=== PATIENT | female | born 1945 | race Caucasian/White ===

== ENCOUNTER 2024-07-01 04:54 | Inpatient (IN) | payer OTHER, SELFPAY ==
[2024-06-30 22:56] VITALS: BP 230/60
[2024-06-30 23:41] VITALS: BP 207/42
[2024-06-30 23:44] VITALS: BMI 23.1
[2024-06-30 23:54] VITALS: BP 219/54
--- NOTE | 2024-06-30 23:56 | EDRN ---
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 Pt c/o headache and occasional ' heart thumping and
dropping sensation', 2 weeks ago had an episode of dizziness and now reports her L hand is more weak and 'not working as well'
[2024-07-01] VITALS (23 sets, daily range): BP systolic 138–223; BP diastolic 46–78; PULSE 68–99
[2024-07-01 00:08] LABS: % Basophils 1.1 % (0-2); % Eosinophils 3.1 % (0-6); % Immature Granulocytes 0.5 % (0-0.5); % Lymphocytes 33.1 % (20.5-51.1); % Monocytes 9.3 % (1.7-9.3); % Neutrophils 52.9 % (42.2-75.2); Absolute Basophils 0.1 10^3/uL (0-0.2); Absolute Eosinophils 0.2 10^3/uL (0-0.7); Absolute Lymphocytes 2.1 10^3/uL (1.2-3.4); Absolute Monocytes 0.6 10^3/uL (0.1-0.6); Absolute Neutrophils 3.3 10^3/uL (1.4-6.5); Hematocrit 33.6 % (37.0-47.0); Hemoglobin 11.6 g/dL (12.0-16.0); Mean Corp Hgb Conc. 34.5 g/dL (33.0-37.0); Mean Corpuscular Hgb 30.7 pg (27.0-31.0); Mean Corpuscular Volume 88.9 fL (81.0-99.0); Mean Platelet Volume 9.1 fL (7.4-10.4); Nucleated Red Blood Cells % 0 %; Platelet Count 237 10^3/uL (130-400); Red Blood Cell Count 3.78 10^6/uL (4.20-5.40); Red Cell Dist. Width 13.1 % (11.5-14.5); White Blood Cell Count 6.2 10^3/uL (4.8-10.8)
[2024-07-01 00:27] LABS: ALT (SGPT) 12 U/L (0-35); AST (SGOT) 23 U/L (14-36); Albumin 4.3 g/dl (3.5-5.0); Alkaline Phosphatase 71 U/L (38-126); Blood Urea Nitrogen 28 mg/dl (7-17); Calcium 9.4 mg/dl (8.4-10.2); Carbon Dioxide 22 mmol/L (22-30); Chloride 106 mmol/L (98-107); Estimated Creatinine Clearance 34 ml/min; Glucose 102 mg/dl (70-99); Potassium 4.4 mmol/L (3.5-5.1); Sodium 137 mmol/L (135-145); Total Bilirubin 0.3 mg/dl (0.2-1.3); Total Protein 7.3 g/dl (6.3-8.2); eGFR 42.09
[2024-07-01 00:35] LABS: NT-proBNP 1570 pg/ml; Troponin I 0.049 ng/ml
[2024-07-01] MEDS: TRANDATE 10 MG IV (01:01)
--- NOTE | 2024-07-01 01:03 | ED.GENMED ---
History of Present Illness
General
Chief Complaint: Blood Pressure Problem
Time Seen by Provider: 07/01/24 00:52
History of Present Illness
History of Present Illness:
78-year-old female presents to the emergency department for evaluation of headache, blurry vision, and bilateral leg weakness ongoing for the past several weeks but worsening in the past several days. She admits that she had historically been on
several antihypertensives that she electively discontinued at least 6 months ago. She checks her blood pressure twice daily and has been consistently in the 1 90-200 range for the past 3 to 4 weeks. encouraged her to come to the emergency
department today. She denies chest pain or shortness of breath.
Review of Systems
Review of Systems
Allergies reviewed?: Yes
All Other Systems: ROS reviewed and negative except as documented in HPI and ROS
Phy Exam
Physical Exam
Physical Exam:
GEN: Well appearing, NAD, WDWN
Eyes: minimally reactive left pupil, baseline per patient, EOMs intact
HENT: NCAT, oral mucosa moist, no JVD, no cervical adenopathy.
Lungs: CTAB, no wheezes, rales, rhonchi, normal chest wall excursion
Cardiac: RRR, no M/R/G, no peripheral edema. Radial pulses 2+ bilat
Abdomen: S, NT, ND, NABS, no masses or hepatosplenomegaly
Neuro: AO x 3, no focal deficits to BUE/BLE, normal sensation throughout
MSK: No gross deformity or ecchymosis. No edema. No digital clubbing
Skin: No rashes, petechiae. Normal color, no pallor or jaundice.
Psych: Calm, cooperative, proper hygiene
Course
Orders/Labs/Results
Orders:
Orders
06/30/24 23:09
Electrocardiogram (*1) Urgent
Reason for Study: Other
Other Reason for Exam: Respiratory Distress
Cardiac Monitoring- Treatment ONCE
EKG- Treatment ONCE
IV Insert/Care/Rem.- Treatment PRN
O2 Therapy [RESP] Urgent
Titrate/Wean O2 to maintain O2 sat greater than (%): 93
Special Instructions: TO MAINTAIN CONTINUOUS O2 SATS >/= 93%
Pulse Ox/cont/shift [RESP] Urgent
Quantity: 1
Special Instructions: continuous pulse ox
06/30/24 23:58
Complete Blood Count/With Diff Urgent
Comprehensive Metabolic Panel Urgent
NT-proBNP Urgent
Troponin I Urgent
07/01/24 00:02
CR Chest - 2 Views Urgent
Reason For Exam: respiratory distress
07/01/24 00:53
Labetalol HCl [Trandate] 10 mg IV NOW STA
07/01/24 00:54
CT Head W/o Iv Contrast Urgent
Comment:
Reason For Exam: headache, blurry vision, HTN
07/01/24 01:29
HydrALAZINE [Apresoline] 10 mg IV NOW STA
07/01/24 02:49
Troponin I Urgent
Abnormal Lab Results
06/30/24 07/01/24
23:58 02:49
RBC 3.78 L 10^6/uL
(4.20-5.40)
Hgb 11.6 L g/dL
(12.0-16.0)
Hct 33.6 L %
(37.0-47.0)
BUN 28 H mg/dl
(7-17)
Creatinine 1.3 H mg/dL
(0.6-1.0)
Glucose 102 H mg/dl
(70-99)
Troponin I 0.049 H* ng/ml 0.048 H* ng/ml
06/30/24 23:58
06/30/24 23:58
Vital Signs
Initial and Last Documented VS:
Initial Vital Signs
Temp Pulse Resp BP Pulse Ox
98.1 F 77 20 230/60 96
06/30/24 22:56 06/30/24 22:56 06/30/24 22:56 06/30/24 22:56 06/30/24 22:56
Last Documented Vital Signs
Temp Pulse Resp BP Pulse Ox
98.1 F 73 20 159/67 96
06/30/24 22:56 07/01/24 03:32 07/01/24 03:32 07/01/24 03:32 07/01/24 03:32
MDM/Problems Addressed
MDM/Problems Addressed:
Patient with hypertensive urgency due to medication noncompliance. She was previously on numerous antihypertensives thus I feel it is reasonable to admit her for further management of her blood pressure crisis
*Critical Care Note
Total Time (30-74mins, 75-104mins- exclusive of procedures): Not Applicable
ED Attending Note
-
Portions of this chart may have been created with voice recognition software.� Occasional wrong word or��sound alike� substitutions may have occurred due to the inherent limitations of voice recognition software.
Discharge Plan
Departure
Patient Disposition: Admit
Date of Disposition: 07/01/24
Time of Disposition: 03:20
Admit to: Med/Surg
Presentation/result/management discussed w/ accepting MD/DO: Hospitalist
Discharge Problem:
Hypertensive urgency
Interventions
Interventions:
*Risk Screen - Suicide Last Done: 06/30/24 22:56
*General Assessment Last Done: 06/30/24 22:56
*Neglect/Abuse Screening Last Done: 06/30/24 22:56
ED- Fall Risk Assessment Last Done: 06/30/24 22:56
*ED COVID-19 Vaccine History Last Done: 06/30/24 22:56
ED- Cardiac Assessment Last Done: 06/30/24 23:55
ED- Neurological Assessment Last Done: 06/30/24 23:55
ED- Pulmonary Assessment Last Done: 06/30/24 23:55
Discharge Date and Time
Print Language: TANZANIAN
[2024-07-01] MEDS: APRESOLINE 10 MG IV (01:31)
[2024-07-01 03:38] LABS: Troponin I 0.048 ng/ml
--- NOTE | 2024-07-01 05:24 | HPS.HSE ---
Family Physician
-
Family Physician: Suzanne Vasquez MD
Chief Complaint
-
Elevated Blood Pressure
History of Present Illness
Patient is a 78y F with PMH significant for hypertension and lichen sclerosis who presents to ED complaining of elevated BP, dizziness and 'pain all over'. History is somewhat difficulty to interpret with patient oscillating between chronic
issues, acute issues and remote issues.
Patient states that she stopped all of her medications 6 months ago. She felt that they were all aggravating her lichen sclerosis, causing itching and dry eyes. She notes that her BP at home has been fairly consistently 200-230 systolic since that
time. Today she checked her BP and it was 210/90. She notes that her diastolic pressure is usually normal and the 90 concerned her - prompting her to present to the ED for further evaluation.
Patient complains of sense of dizziness and feeling unsteady on her feet. She indicates that this is an intermittent issue for her. No focal / lateral weakness or neurologic deficits.
She denies any headache. She has chronic visual impairment s/p/ many eye surgeries / corneal transplants / etc.
She denies chest pain but reports 'pounding' in her chest. No SOB.
Medical History
Past Medical History
Past Medical History: Reports Other
Additional Past Medical History:
Hypertension
Lichen Sclerosis
Anxiety / Depression
Chronic Pancreatitis
Diverticular Disease
Spinal Stenosis
Past Surgical History: Reports Other
Additional Past Surgical History:
Partial Colectomy
28 eye surgeries in total
14 corneal transplants
Lumbar Laminectomy
Cholecystectomy
Social History
Tobacco: Smoker (Current every day smoker. > 50 pack years total use.)
Alcohol: None
Personal:
Living: With Family
Family History
Family History: Not pertinent
Allergies / Home Medications
Allergies reflects when Allergies were last updated in [facility].
Home Medications with original date entered in [facility]
Allergy/Medication List:
Allergies
Allergy/AdvReac Type Severity Reaction Status Date / Time
No Allergy Information Allergy Unverified 06/30/24 23:09
Available
Home Medications
alprazolam 0.5 mg tablet 0.5 mg PO BID PRN anxiety 07/01/24
Review of Systems
-
History Source: Patient
A 12 point ROS was completed and negative except as noted: Yes
Constitutional: Reports Fatigue; Denies Fever or Chills
EENT: Denies Sore Throat
Respiratory: Denies Cough or Trouble Breathing
Cardiac: Denies Chest Pain, Diaphoresis, Palpitations or Syncope
Abdomen/GI: Denies Abdominal Pain, Nausea, Vomiting, Diarrhea, Bloody Stools or Black Stools
: Denies Dysuria, Frequency or Flank Pain
Musculoskeletal: Reports Joint Pain and Muscle Pain; Denies Edema
Neurological: Reports Dizzy and Weakness; Denies Headache or Numbness
Psych: Denies Depression or Anxiety
Physical Exam
Vital Signs
Vital Signs
Temp Pulse Resp BP Pulse Ox
97.9 F 94 20 175/62 95
07/01/24 04:49 07/01/24 05:00 07/01/24 05:00 07/01/24 04:49 07/01/24 05:00
Physical Exam
General: Other (78y F in no acute distress.)
HEENT: Moist mucous membranes and PERRLA
Respiratory: Clear; No Wheezes, Rales or Rhonchi
Cardiac: S1/S2 and Regular Rhythm; No Murmur
GI: Soft, Non Tender, Non Distended and Normal Bowel Sounds
Musculoskeletal: No Clubbing, No Cyanosis and No Edema
Neuro: AO x 3 and Nonfocal/grossly intact
Laboratory Results
-
06/30/24 23:58
06/30/24 23:58
Laboratory Results
Total Bilirubin 0.3 mg/dl (0.2-1.3) 06/30/24 23:58
AST 23 U/L (14-36) 06/30/24 23:58
ALT 12 U/L (0-35) 06/30/24 23:58
Alkaline Phosphatase 71 U/L (38-126) 06/30/24 23:58
Troponin I 0.048 ng/ml H* 07/01/24 02:49
Impression/Plan
-
A/P: Patient is a 78y F with PMH significant for hypertension and lichen sclerosis who presents to ED for evaluation of elevated BP.
Severe Uncontrolled Hypertension
- Admit for further evaluation and treatment.
- Mild elevation in troponin - already trending down - without chest pain or EKG changes.
- Difficulty to categorize this as hypertensive emergency given chronicity of BP elevation.
- BP improved after IV medications in the ED.
- Begin PO amlodipine and adjust / add additional meds as needed for BP control.
- Encourage medication compliance.
- Monitor for any new / focal symptoms / etc.
Renal Insufficiency
- SCr = 1.3 with no prior value for comparison.
- Suspect CKD due to long-standing hypertensive kidney disease.
- Follow over the next 24-48 hours to establish baseline.
Lichen Sclerosis
- Not on any chronic treatment.
- Follow for any new / worsened symptoms with introduction of new medications.
DVT Prophylaxis: SCDs
Code Status: DNR
[2024-07-01 06:12] LABS: Hematocrit 34.4 % (37.0-47.0); Hemoglobin 11.9 g/dL (12.0-16.0); Mean Corp Hgb Conc. 34.6 g/dL (33.0-37.0); Mean Corpuscular Hgb 30.6 pg (27.0-31.0); Mean Corpuscular Volume 88.4 fL (81.0-99.0); Mean Platelet Volume 9.2 fL (7.4-10.4); Platelet Count 245 10^3/uL (130-400); Red Blood Cell Count 3.89 10^6/uL (4.20-5.40); Red Cell Dist. Width 13.1 % (11.5-14.5); White Blood Cell Count 8.3 10^3/uL (4.8-10.8)
[2024-07-01 06:19] LABS: Urine Albumin Trace (Neg - Trace); Urine Bilirubin Negative (Negative); Urine Character Clear (Clear); Urine Color Yellow; Urine Glucose Negative (Negative); Urine Ketone Negative (Negative); Urine Leukocyte Trace (Negative); Urine Nitrite Negative (Negative); Urine Occult Blood Negative (Negative); Urine Urobilinogen Negative (Neg - 1+)
[2024-07-01 06:27] LABS: Blood Urea Nitrogen 25 mg/dl (7-17); Calcium 9.6 mg/dl (8.4-10.2); Carbon Dioxide 18 mmol/L (22-30); Chloride 105 mmol/L (98-107); Estimated Creatinine Clearance 40 ml/min; Glucose 120 mg/dl (70-99); HDL Cholesterol 81 mg/dl; LDL Cholesterol, Calculated 114 mg/dl; Sodium 137 mmol/L (135-145); Total Cholesterol 208 mg/dl (50-199); Triglyceride 69 mg/dl (10-149); Very Low Density Lipoprotein 13 mg/dl (0-30); eGFR 51.43
[2024-07-01 06:41] LABS: Troponin I 0.054 ng/ml
[2024-07-01 07:00] LABS: Urine Bacteria Few (Negative); Urine Squamous Cell 16-20 /LPF (Few); Urine Urothelial Cell 16-20 /LPF (FEW)
[2024-07-01 07:12] LABS: TSH Reflex To Free T4 2.11 uIU/ml (0.47-4.68)
[2024-07-01] MEDS: NORVASC 10 MG PO (08:26)
--- NOTE | 2024-07-01 08:28 | W.PN.HOSP.TC ---
Today's Communication/Plan
-
see PN
Assessment / Plan
Assessment / Plan
78yo F with PMHx of HTN, spinal stenosis, anxiety, lichen planus came with c/o palpitations and elevated BP. She stopped her meds appr 6mo ago since she thought that they were making her feel dry, exacerbating lichen planus. She does not have
records of her previous meds, since she threw that all away. 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
Among chronic complains - b/l LE pain starting from back radiating down her legs without recent change or new focal neurological deficit (previously seen by neurology as per patient)
A/P:
#Palpitations
#HTN urgency
#Elevated troponin, most likely non-ischemic myocardial injury 2/2 HTN
Patient remembers that she was on 5 antihypertensives, among them Amlodipine, HCTZ and possibly ACEi/ARB
start on Amlodipine and Lisinopril
Patient already scheduled for outpatient appt with her coning machine operator - will need BMP in 2-3 weeks
follow BP trend
Cardiology consult
Serial troponins without significant delta. Follow until peak
EKG with SR, however with palpitations - concern for occult Afib - cont telemetry
TSH WNL
#Elevated trop
most likely CKD vs HTN-induced
minimal elevation 1.1 - lisinopril not contraindicated
follow Cr with PCP
#generalized weakness
UA neg for overt infection
Chest XR without abnormality
Check COVID-19 and Influenza, however no fever and no WBC elevation
Head CT without acute findings
PT/OT
#Hx of spinal stenosis
recommend to cont following with her PCP
no new focal neuro deficit
Check gait with PT/OT
#Lichen planus
Moisturizing lotion
#Anxiety
Aprasolam
#HLD
Needs statin - defer to PCP
DVT ppx hep
Full code
I have spent at least 59min reviewing chart, test results, communication with consultants and direct patient care
Anticipated Discharge: 24 - 48 hours
Subjective/Interval History
-
Date of Service: July 01, 2024
Objective Data
-
Labs:
Laboratory Results
06/30/24 07/01/24
23:58 06:01
WBC 6.2 8.3
Hgb 11.6 L 11.9 L
Hct 33.6 L 34.4 L
Plt Count 237 245
Sodium 137 137
Potassium 4.4 4.0
Chloride 106 105
Carbon Dioxide 22 18 L
BUN 28 H 25 H
Creatinine 1.3 H 1.1 H
Glucose 102 H 120 H
Calcium 9.4 9.6
Total Bilirubin 0.3
AST 23
ALT 12
Alkaline Phosphatase 71
Vital Signs:
Vital Signs
Temp Pulse Resp BP Pulse Ox
98.3 F 94 20 175/62 95
07/01/24 08:01 07/01/24 05:00 07/01/24 05:00 07/01/24 04:49 07/01/24 05:00
Review of Systems
-
History Source: Patient
All other systems: Reviewed and negative
Constitutional: Reports Weakness
Cardiac: Reports Palpitations
Physical Exam
-
General: No Apparent Distress and Comfortable
HEENT: Normocephalic, Atraumatic and Moist Mucous Membranes
Respiratory: Clear to Auscultation
Cardiac: Irregular Rhythm; Negative Murmur
GI: Soft, Nontender and Nondistended
Genito-urinary: No Costovertebral Tender
Musculoskeletal: No Clubbing, No Cyanosis, No Edema and Other (good b/l dorsalis pedis pulse)
Skin: Warm
Neuro: Awake, Alert, Oriented, AO x 3, No Motor Deficits and No Sensory Deficits
Psych: Calm
--- NOTE | 2024-07-01 09:28 | CON.CAR ---
Addendum entered and electronically signed by Ministerio Barrera MD 07/01/24 10:58:
78 yo female with PMH of HTN, current tobacco. Stopped meds months ago on her own. Now here with HTN emergency (acute, non-ischemic myocardial injury noted) and palps. No chest pain. Exam with RRR, no murmurs, no edema. Cr 1.1. Tele: SR, with
brief SVT. EKG: NSR, nonspecific ST abnormality.
We discussed the importance of med compliance. Lisinopril and amlodipine added back. She feels thiazides worsened her lichen sclerosis.
Palps, SVT. I offered her medical therapy. She declines at this time.
Original Note:
Consultation
Consultation Request
Date/Time Consultation Requested: 07/01/2024 08:20
Date/Time Consultation Performed: 07/01/2024 08:50
Requesting Provider: Dr. Friend
Performing Provider: OLGA Ontiveros for Dr. Barrera
Reason for Consultation: Hypertensive urgency
Medical History
-
Chief Complaint: Elevated blood pressure
History of Present Illness:
Ellie Morales is a 78-year-old female with hypertension, Lichen sclerosis, anxiety, depression, neuropathy, and current smoker with suspected COPD presented to the emergency department with a chief complaint of elevated blood pressure. Approximately
6 months ago she stopped her antihypertensive agents as they were worsening her lichen sclerosus causing itching and dry eyes. Her systolic blood pressure has been over 180 mmHg for the past several weeks. She has no chest pain. She does endorse
intermittent palpitations which she describes as a midsternal anterior pounding sensation. She is on the hospital service. Cardiology was consulted for management of hypertensive urgency
She lives at home with her . She does not begin amount of stress as her is a [place] and has bipolar disorder. He recently had a manic episode.
Past Medical History
Past Medical History: HTN, Psychiatric (Anxiety/depression) and Other (Lichen sclerosis)
Past Surgical History: Bowel Resection (Partial colectomy) and Orthopedic (Lumbar laminectomy)
Social History
Tobacco: Smoker (1 PPD since the age of 30)
Alcohol: None
Drug: None
Personal:
Living: With Family
Employment: Retired
Family History
Family History: Reviewed & Not Pertinent
Allergies / Home Medications
Allergy/AdvReac Type Severity Reaction Status Date / Time
No Allergy Information Allergy Unverified 06/30/24 23:09
Available
�Medication �Instructions �Recorded �Confirmed �Type
alprazolam 0.5 mg tablet 0.5 mg PO BID PRN anxiety 07/01/24 07/01/24 History
Review of Systems
-
History Source: Patient
All other systems: Negative unless noted
Constitutional: Fatigue
EENT: No Symptoms
Respiratory: No Symptoms
Cardiac: Palpitations
Abdomen/GI: No Symptoms
: No Symptoms
Musculoskeletal: No Symptoms
Skin: No Symptoms
Neurological: Other (Neuropathy)
Endocrine: No Symptoms
Hematologic/Lymphatic: No Symptoms
Physical Exam
Vital Signs
Temp Pulse Resp BP Pulse Ox
98.3 F 94 20 175/62 95
07/01/24 08:01 07/01/24 05:00 07/01/24 05:00 07/01/24 04:49 07/01/24 05:00
Lab Results
07/01/24 06:01
07/01/24 06:01
Troponin I 0.054 ng/ml H* 07/01/24 06:01
Lhi-R-Keeozcgpegq Pept 1570 pg/ml 06/30/24 23:58
Physical Exam
General: Well Developed, Well Nourished, No Apparent Distress and Comfortable
HEENT: Normocephalic, Anicteric and Moist Mucous Membranes
Respiratory: Non Labored Respirations
Cardiac: S1/S2 and Regular Rhythm; Negative Peripheral Edema
Breast: Deferred by me
GI: Soft, Non Tender, Non Distended and Normal Bowel Sounds
Rectal: Deferred by Provider
Genito-urinary: No Costovertebral Tender
Musculoskeletal: No Clubbing and No Cyanosis
Skin: Warm and Dry
Neuro: AO x 3
Hematologic/Lymphatic: No Lymphadenopathy
Psych: Calm
Impression / Plan
-
IMPRESSION/PLAN: 78F with hypertension, Alan sclerosis, anxiety, depression, neuropathy, and current smoker with suspected COPD presented to the emergency department with a chief complaint of elevated blood pressure.
Hypertensive Emergency
-Compliance was an issue as an outpatient
-She does not want to take chlorthalidone as it worsened her Lichen sclerosis
-She was started on amlodipine 10 and lisinopril 5 mg by primary service, follow BP
-TTE Wednesday
Atrial tachycardia
-Intermittent chest pounding
-She is hesitant to already take 2 agents, unclear if she will take a third agent
Abnormal troponin, likely nonischemic myocardial injury in the setting of hypertensive emergency
-She has no chest pain
-EKG does not show acute ischemia
-Trend to peak, currently 0.054
Renal insufficiency, unclear baseline
Fasting hyperglycemia, HgbA1c pending
Lichen sclerosis, chronic
Current smoker, nearly 50 years of smoking, no plans to quit
Data Reviewed
-
EKG: Report Reviewed by me (Sinus rhythm, rate 75)
CT Scan: Report Reviewed by me (Head: No acute abnormality)
Labs: Labs Reviewed by me
[2024-07-01] MEDS: ZESTRIL 5 MG PO (11:14)
[2024-07-01 12:44] LABS: Troponin I 0.043 ng/ml
[2024-07-01 13:22] LABS: Glycohemoglobin (HgbA1c) 5.3 % (4.0-5.6)
--- NOTE | 2024-07-01 15:26 | PTCARENOTE ---
Received patient to unit from [facility]. RN updated patient on medication administration and plan of care. Pt was able to walk from stretcher to bed with walker, denies pain at the moment. She is on room air, monitor showing NSR with 70 BPM. SBP is
elevated but not high enough for prn hydralazine.
[2024-07-02] VITALS (9 sets, daily range): BP systolic 119–186; BP diastolic 39–60; PULSE 65–91; O2SAT 95
[2024-07-02] MEDS: ZESTRIL 5 MG PO (08:05)
[2024-07-02] MEDS: NORVASC 10 MG PO (08:05)
[2024-07-02 08:45] LABS: Blood Urea Nitrogen 24 mg/dl (7-17); Calcium 9.9 mg/dl (8.4-10.2); Carbon Dioxide 25 mmol/L (22-30); Chloride 100 mmol/L (98-107); Estimated Creatinine Clearance 32 ml/min; Glucose 103 mg/dl (70-99); Potassium 4.2 mmol/L (3.5-5.1); Sodium 135 mmol/L (135-145); eGFR 38.51
--- NOTE | 2024-07-02 09:23 | W.PN.HOSP.TC ---
Addendum entered and electronically signed by Michelet Martinez MD 07/02/24 14:19:
#old small lacunar strokes on MRI
most likely 2/2 poor BP control
ASA, statin as LDL>100
Original Note:
Today's Communication/Plan
-
Ortho VS
CT abd with oral contrast
start IVF
MRI brain
Echo in AM as per card
Assessment / Plan
Assessment / Plan
78yo F with PMHx of HTN, chronic pancreattitis, functional abdominal pain, Hx of cholecystectomy, spinal stenosis, anxiety, lichen planus came with c/o palpitations and elevated BP. She stopped her meds appr 6mo ago since she thought that they were
making her feel dry, exacerbating lichen planus. She does not have records of her previous meds, since she threw that all away. 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
Among chronic complains - b/l LE pain starting from back radiating down her legs without recent change or new focal neurological deficit (previously seen by neurology as per patient)
A/P:
#Palpitations
#HTN urgency
#Elevated troponin, most likely non-ischemic myocardial injury 2/2 HTN
Patient remembers that she was on 5 antihypertensives, among them Amlodipine, HCTZ and possibly ACEi/ARB
start on Amlodipine and Lisinopril
Patient already scheduled for outpatient appt with her operations and maintenance manager - will need BMP in 2-3 weeks
follow BP trend
Cardiology consult
Serial troponins without significant delta. Follow until peak
EKG with SR, however with palpitations - concern for occult Afib - cont telemetry
TSH WNL
Echo
#Functional abdominal pain
#Chronic pancreatitis
#hx of hemicolectomy 2/2 diverticulosis
Pain and nausea worsened recently
CT abd/pelvis
check lipase
#Elevated Cr
most likely CKD vs HTN-induced
follow Cr
Hydrate -might be poor oral intake with functional abdominal pain
#generalized weakness with dizziness
check orthostatic VS
MRI brain
no vertigo
UA neg for overt infection
Chest XR without abnormality
Check COVID-19 and Influenza, however no fever and no WBC elevation
Head CT without acute findings
PT/OT
#Hx of spinal stenosis
recommend to cont following with her PCP
no new focal neuro deficit
Check gait with PT/OT
#Lichen planus
Moisturizing lotion
#Anxiety
Alprazolam
#HLD
Needs statin - defer to PCP
DVT ppx hep
Full code
I have spent at least 59min reviewing chart, test results, communication with consultants and direct patient care
Anticipated Discharge: 24 - 48 hours
Subjective/Interval History
-
Date of Service: July 02, 2024
Objective Data
-
Labs:
Laboratory Results
07/02/24
08:20
Sodium 135
Potassium 4.2
Chloride 100
Carbon Dioxide 25
BUN 24 H
Creatinine 1.4 H
Glucose 103 H
Calcium 9.9
Vital Signs:
Vital Signs
Temp Pulse Resp BP Pulse Ox
97.8 F 78 18 155/58 95
07/02/24 07:00 07/02/24 07:00 07/02/24 07:00 07/02/24 07:00 07/02/24 07:00
I&O
07/01/24 07/02/24 07/03/24
06:59 06:59 06:59
Intake Total 480 / 480
Balance 480 / 480
Review of Systems
-
History Source: Patient
All other systems: Reviewed and negative
Abdomen/GI: Reports Abdominal Pain
Physical Exam
-
General: No Apparent Distress
HEENT: Normocephalic
Respiratory: Clear to Auscultation
GI: Soft, Nondistended and Tender (diffusely)
Neuro: Awake, Alert, Oriented and AO x 3
Psych: Calm
[2024-07-02 10:05] LABS: ALT (SGPT) 14 U/L (0-35); AST (SGOT) 25 U/L (14-36); Albumin 4.5 g/dl (3.5-5.0); Alkaline Phosphatase 67 U/L (38-126); Direct Bilirubin 0.2 mg/dl (0.0-0.4); Lipase 119 U/L (23-300); Total Bilirubin 0.9 mg/dl (0.2-1.3); Total Protein 7.5 g/dl (6.3-8.2)
[2024-07-02] MEDS: LR 1000 IV (10:23)
[2024-07-02] MEDS: OMNIPAQUE 50 ML PO (11:13)
--- NOTE | 2024-07-02 13:03 | W.PN.CD ---
Today's Communication / Plan
-
stop lisinopril
continue amlodipine, and add coreg 6.25mg bid
trend tele
echo
Impression / Plan
-
IMPRESSION/PLAN: 78F with hypertension, lichen sclerosis, anxiety, depression, neuropathy, and current smoker with suspected COPD presented to the emergency department with a chief complaint of elevated blood pressure.
Hypertensive Emergency
-with acute non-ischemic myocardial injury (peak trop 0.05): improved
-Compliance was an issue as an outpatient
-She does not want to take chlorthalidone as it worsened her Lichen sclerosis
-She was started on amlodipine 10 and lisinopril 5 mg by primary service
-now with Cr trending up, and patient prefers meds that do not requiring monitoring of labs: stop lisinopril
-continue amlodipine, and add coreg 6.25mg bid
Atrial tachycardia, paroxysmal
-Intermittent chest pounding
-add coreg as above
-tele
Abnormal troponin, nonischemic myocardial injury in the setting of hypertensive emergency
-She has no chest pain
-EKG does not show acute ischemia
-Trend to peak, currently 0.054
-echo in AM
Renal insufficiency, unclear baseline
Fasting hyperglycemia, HgbA1c pending
Lichen sclerosis, chronic
Current smoker, nearly 50 years of smoking, no plans to quit
Physical Exam
Vital Signs/Labs
Vital Signs
Temp Pulse Resp BP Pulse Ox
97.8 F 78 18 155/58 95
07/02/24 07:00 07/02/24 07:00 07/02/24 07:00 07/02/24 07:00 07/02/24 07:00
07/01/24 07/02/24 07/03/24
06:59 06:59 06:59
Actual Weight 66 kg
07/01/24 06:01
07/02/24 08:20
Triglycerides 69 mg/dl (10-149) 07/01/24 06:01
LDL Cholesterol, Calc 114 mg/dl 07/01/24 06:01
VLDL Cholesterol, Calc 13 mg/dl (0-30) 07/01/24 06:01
HDL Cholesterol 81 mg/dl 07/01/24 06:01
06/30/24
23:58
Rqe-D-Xamguuniqic Pept 1570
LAB Results
06/30/24 07/01/24 07/01/24
23:58 02:49 06:01
Troponin I 0.049 H* 0.048 H* 0.054 H*
07/01/24 07/01/24
11:59 17:29
Troponin I 0.043 H* Cancelled
Physical Exam
Constitutional: No acute distress and Comfortable
EENT: Moist mucous membranes
Cardiovascular: Rhythm & rate is regular, Pedal edema is absent, JVD pressure is normal and Systolic murmur absent
Respiratory: Respiratory effort normal and Lungs clear to auscul.
Neuro/Psych: AO x 3
Data Reviewed
-
Date of Service: July 02, 2024
EKG: Other (Tele: SR with paroxysmal AT)
Labs: Labs Reviewed by me
[2024-07-02] MEDS: APRESOLINE 5 MG IV (13:37)
[2024-07-02] MEDS: ZOFRAN 4 MG IV (13:44)
--- NOTE | 2024-07-02 15:49 | CM ---
CM reviewed medical records. CM met with patient in room. Patient confirmed demographics. Patient lives independently with her . Patient dneis history of VN, SNF. Patient uses a walker for ambulation. Patient is active with her PCP. Patient
uses [facility] for medication services.
PLAN: home no needs.
[2024-07-02] MEDS: LIPITOR PO (17:15)
[2024-07-02] MEDS: COREG 6.25 MG PO (19:50)
[2024-07-03 03:00] VITALS: BP 134/48
[2024-07-03] MEDS: LR 1000 IV (04:55)
--- NOTE | 2024-07-03 05:59 | PTCARENOTE ---
pt is aao3, continues to report blurry vision and having trouble seeing facebook. pt images sometimes move. pt a little forgetful. pt would forget she is at the hospital then realized by herself that she was not home. pt also refer to the iv pole as
a mailbox or plane. pt neuro checks WNL. VSS
[2024-07-03 08:13] LABS: % Basophils 1.4 % (0-2); % Immature Granulocytes 0.4 % (0-0.5); % Lymphocytes 32.9 % (20.5-51.1); % Monocytes 8.7 % (1.7-9.3); % Neutrophils 53.6 % (42.2-75.2); Absolute Basophils 0.1 10^3/uL (0-0.2); Absolute Eosinophils 0.2 10^3/uL (0-0.7); Absolute Lymphocytes 1.9 10^3/uL (1.2-3.4); Absolute Monocytes 0.5 10^3/uL (0.1-0.6); Hematocrit 31.6 % (37.0-47.0); Hemoglobin 10.4 g/dL (12.0-16.0); Mean Corp Hgb Conc. 32.9 g/dL (33.0-37.0); Mean Corpuscular Volume 91.1 fL (81.0-99.0); Mean Platelet Volume 9.4 fL (7.4-10.4); Nucleated Red Blood Cells % 0 %; Platelet Count 250 10^3/uL (130-400); Red Blood Cell Count 3.47 10^6/uL (4.20-5.40); Red Cell Dist. Width 13.2 % (11.5-14.5); White Blood Cell Count 5.6 10^3/uL (4.8-10.8)
[2024-07-03] MEDS: COREG 6.25 MG PO ×2 (08:23→19:46)
[2024-07-03] MEDS: NORVASC 10 MG PO (08:24)
[2024-07-03] MEDS: LOW STRENGTH ASPIRIN 81 MG PO (08:24)
[2024-07-03 08:26] VITALS: BP 139/47
[2024-07-03 08:50] LABS: ALT (SGPT) 14 U/L (0-35); AST (SGOT) 27 U/L (14-36); Albumin 3.9 g/dl (3.5-5.0); Alkaline Phosphatase 63 U/L (38-126); Blood Urea Nitrogen 23 mg/dl (7-17); Calcium 9.4 mg/dl (8.4-10.2); Carbon Dioxide 24 mmol/L (22-30); Chloride 100 mmol/L (98-107); Estimated Creatinine Clearance 32 ml/min; Glucose 80 mg/dl (70-99); Potassium 4.3 mmol/L (3.5-5.1); Sodium 133 mmol/L (135-145); Total Bilirubin 0.9 mg/dl (0.2-1.3); Total Protein 6.7 g/dl (6.3-8.2); eGFR 38.51
--- NOTE | 2024-07-03 09:17 | W.PN.CD ---
Addendum entered and electronically signed by Ministerio Barrera MD 07/03/24 10:30:
CDI: suspected ROMÁN after lisinopril, which has since been stopped
Original Note:
Today's Communication / Plan
-
BP better
-coreg was added due to HTN and SVT: continue 6.25mg bid
-continue amlodipine 10mg daily
echo today
we will see her again at your request, or if there is a significant abnormality on echo
Impression / Plan
-
IMPRESSION/PLAN: 78F with hypertension, lichen sclerosis, anxiety, depression, neuropathy, and current smoker with suspected COPD presented to the emergency department with a chief complaint of elevated blood pressure.
Hypertensive Emergency: resolved
-with acute non-ischemic myocardial injury (peak trop 0.05): improved
-Compliance was an issue as an outpatient
-She does not want to take chlorthalidone as it worsened her Lichen sclerosis
-She was started on amlodipine 10 and lisinopril 5 mg by primary service
-now with Cr trending up, and patient prefers meds that do not requiring monitoring of labs: lisinopril stopped
HTN
-BP better
-coreg was added due to HTN and SVT (atrial tachycardia): continue 6.25mg bid
-continue amlodipine 10mg daily
Atrial tachycardia, paroxysmal
-Intermittent chest pounding
-added coreg as above
-tele with no more AT after coreg added
Abnormal troponin, nonischemic myocardial injury in the setting of hypertensive emergency
-She has no chest pain
-EKG does not show acute ischemia
-Trend to peak, currently 0.054
-echo in AM
Renal insufficiency, unclear baseline
Fasting hyperglycemia, HgbA1c pending
Lichen sclerosis, chronic
Current smoker, nearly 50 years of smoking, no plans to quit
Physical Exam
Vital Signs/Labs
Vital Signs
Temp Pulse Resp BP Pulse Ox
98.2 F 68 16 139/47 95
07/03/24 08:33 07/03/24 03:00 07/03/24 03:00 07/03/24 08:26 07/03/24 08:33
07/03/24 07:21
07/03/24 07:21
Triglycerides 69 mg/dl (10-149) 07/01/24 06:01
LDL Cholesterol, Calc 114 mg/dl 07/01/24 06:01
VLDL Cholesterol, Calc 13 mg/dl (0-30) 07/01/24 06:01
HDL Cholesterol 81 mg/dl 07/01/24 06:01
06/30/24
23:58
Vjb-D-Kaihrahwmaz Pept 1570
LAB Results
06/30/24 07/01/24 07/01/24
23:58 02:49 06:01
Troponin I 0.049 H* 0.048 H* 0.054 H*
07/01/24 07/01/24
11:59 17:29
Troponin I 0.043 H* Cancelled
Physical Exam
Constitutional: No acute distress
EENT: Moist mucous membranes
Cardiovascular: Rhythm & rate is regular, Pedal edema is absent, JVD pressure is normal and Systolic murmur absent
Respiratory: Respiratory effort normal and Lungs clear to auscul.
Neuro/Psych: AO x 3
Data Reviewed
-
Date of Service: July 03, 2024
EKG: Other (Tele: SR/SB 50s-60s)
Labs: Labs Reviewed by me
--- NOTE | 2024-07-03 10:06 | PN.CDI ---
CDI
- -
CDI:
Physician Documentation Request
Admit Date: 07/01/24 04:54
Dear Cardiology,
Patient admitted for hypertension.
Laboratory Tests
07/01/24 07/02/24 07/03/24
06:01 08:20 07:21
Creatinine 1.1 H 1.4 H 1.4 H
Clarify which of the following accurately represents the patient's renal status:
ROMÁN
Rise in creatinine
Other
Criteria for ROMÁN*
1 Increase in serum creatinine by > or = to 0.3 mg/dL (> or = to 26.5 micromol/L) within 48 hours, OR
2 Increase in serum creatinine to > or = to 1.5 times baseline, which is known or presumed to have occurred within 7 days, OR
3 Urine volume < 0.5 nL/kg/hour for six hours
Use of terms such as suspected, likely, concern for, or probable (associated with a specific diagnosis that is being evaluated, monitored, or treated as if it exists) are acceptable and can be coded in the inpatient setting, when documented at the
time of discharge.
Thank you,
Meri Cheung RN, BSN
CDI Specialist
Available via [place] text
Please use your independent medical judgment in providing your response.
*Source: Kidney Disease: Improving Global Outcomes (KDIGO) 2012
[2024-07-03 11:44] VITALS: BP 121/46; PULSE 58; O2SAT 97
[2024-07-03 12:05] VITALS: BP 121/46
--- NOTE | 2024-07-03 16:14 | VNURNOTE ---
Call placed to patient - no answer on her cell phone. Unable to leave a message. Call placed to patient's spouse, Josh. No answer, left message requesting call back. VN referral placed in [facility].
--- NOTE | 2024-07-03 16:16 | CM ---
CM reviewed pt with
SNF vs VN recs, ready for dc if plan for home today
Bedside meeting with pt to discuss dc planning
Pt slightly confused and had difficulty with discussing VN vs SNF vs outpt
She does not want SNF but pt noted concerns with out of pocket costs for homecare
IMM completed with pt and granddtr over phone
Call with spouse who noted concerns regarding dc today and confusion
Requesting to speak with attending
TT/Dr Harrell with spouse's request
Referral to [facility] to run insurance benefits and costs
Discharge Disposition- home with [facility] vs outpt vs SNF
[2024-07-03] MEDS: LIPITOR 40 MG PO (16:38)
[2024-07-03] MEDS: TYLENOL 650 MG PO (16:38)
--- NOTE | 2024-07-03 17:28 | W.PN.HOSP.TC ---
Addendum entered and electronically signed by Cedrick Harrell DO 07/04/24 14:24:
Gen-AAOx3, NAD
HEENT-NC, AT, anicteric, cloudy left cornea
Neck-supple
CV-reg, no M, +S1/S2
Lungs-clear B/L
Abd-soft, NT, ND
Musculoskeletal-no edema, no overt deformity
Skin-warm and dry
Neuro-grossly non-focal, no tremor
Psych-calm, cooperative
Original Note:
Today's Communication/Plan
-
Assessment / Plan
Assessment / Plan
78yo F with PMHx of HTN, lichen planus, chronic pain, ocular disorder (corneal sclerosis?, follows up with [facility] [place]), chronic pancreatitis, functional abdominal pain, Hx of cholecystectomy, spinal stenosis, and anxiety presented with c/o
palpitations and elevated BP. She stopped her meds appr 6mo ago since she thought that they were making her feel dry, exacerbating lichen planus. She does not have records of her previous meds, since she threw that all away. She was obtaining all
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
Among chronic complains - b/l LE pain starting from back radiating down her legs without recent change or new focal neurological deficit (previously seen by neurology as per patient)
A/P:
#HTN emergency
-Likely secondary to stopping her home medications approximately 6 months ago
-Now well-controlled on amlodipine 10 mg daily, IV agents discontinued
-Patient has reported intolerance to multiple blood pressure medications previously including lisinopril and HCTZ which we will avoid
-MRI brain shows no acute abnormalities but does show chronic appearing acute cerebral infarcts likely due to uncontrolled hypertension
-Echocardiogram shows preserved LVEF with concentric LVH and moderate aortic stenosis, will need ongoing monitoring in the outpatient setting
#Chronic pancreatitis
-hx of hemicolectomy 2/2 diverticulosis
-Pain and nausea worsened recently
-CT abd/pelvis shows no acute pathology
- lipase within normal limits
#Elevated Cr
-most likely CKD due to longstanding uncontrolled hypertension
-Renal function appears stable
-IV fluids given
-Continue blood pressure control
-Will need ongoing monitoring of renal function in the outpatient setting
#generalized weakness with dizziness
-Suspect to uncontrolled hypertension
-Symptoms now improved with blood pressure control
-MRI shows no acute abnormalities but does show chronic appearing cerebellar infarcts
-Evaluated by PT/OT are recommending SNF versus home PT, patient prefers home
#Hx of spinal stenosis
-recommend to cont following with her PCP
-no new focal neuro deficit
#Lichen planus
-Moisturizing lotion
#Anxiety
-Alprazolam
#HLD
-Needs statin - defer to PCP
DVT ppx hep
Full code
Anticipated Discharge: Within 24 hours
Subjective/Interval History
-
Date of Service: July 03, 2024
Ms. Morales was seen and examined at bedside this morning. She complains of ongoing vision problems and generalized pain. Her blood pressure is much better controlled. MRI showed no acute changes. Echocardiogram showed preserved LVEF with moderate
concentric LVH and moderate aortic stenosis.
Objective Data
-
Labs:
Laboratory Results
07/03/24
07:21
WBC 5.6
Hgb 10.4 L
Hct 31.6 L
Plt Count 250
Sodium 133 L
Potassium 4.3
Chloride 100
Carbon Dioxide 24
BUN 23 H
Creatinine 1.4 H
Glucose 80
Calcium 9.4
Total Bilirubin 0.9
AST 27
ALT 14
Alkaline Phosphatase 63
Vital Signs:
Vital Signs
Temp Pulse Resp BP Pulse Ox
97.8 F 58 16 121/46 95
07/03/24 12:05 07/03/24 12:05 07/03/24 12:05 07/03/24 12:05 07/03/24 12:05
I&O
07/02/24 07/03/24 07/04/24
06:59 06:59 06:59
Intake Total 480 / 480 3120 / 3120
Balance 480 / 480 3120 / 3120
Review of Systems
-
History Source: Patient
All other systems: Reviewed and negative
EENT: Reports Blurry Vision (No vision in left eye, blurry vision right)
Musculoskeletal: Reports Joint Pain
Physical Exam
-
General: No Apparent Distress
[2024-07-03 19:56] VITALS: BP 126/40
[2024-07-03] MEDS: XANAX 0.5 MG PO (22:20)
[2024-07-03 22:50] VITALS: BP 138/44
[2024-07-04 03:35] VITALS: BP 162/56
[2024-07-04 07:15] VITALS: BP 155/45
[2024-07-04] MEDS: LOW STRENGTH ASPIRIN 81 MG PO (10:30)
[2024-07-04] MEDS: COREG 6.25 MG PO (10:30)
[2024-07-04] MEDS: NORVASC 10 MG PO (10:30)
--- NOTE | 2024-07-04 11:19 | VNURNOTE ---
VN liaison attempted to meet patient, she was going to a test. Called spouse Josh- no answer- left message requesting call back.
[2024-07-04 11:24] VITALS: BP 136/42
--- NOTE | 2024-07-04 11:43 | VNURNOTE ---
[facility] liaison spoke with patient's spouse Josh. He appeared to be annoyed at questions asked. Reviewed that insurance will cover [facility] (checked w/[facility] billing [place]). Reviewed [facility] nurse/therapy, visits, schedule and homebound status. Spouse is
agreeable and understands that visits at home will be 2-3 x per week to assess and teach medical management. Spouse has liaison and [facility] contact information. He stated that the patient is always confused and is never left alone. Either himself or
sister in law Edna is with patient at home. Josh is aware that [facility] will contact them for start of care in 1-2 days after discharge from . [facility] referral completed in [facility].
--- NOTE | 2024-07-04 14:22 | W.DCSUMMARY ---
Discharge Summary
Discharge Data
Date of Admission: 07/01/24
Date of Discharge: 07/04/24
-
Pending Results: No
Hospital Course
Ms. Morales is a 78-year-old female with a medical history of spinal stenosis, lichen planus, ocular disease (corneal sclerosis?, follows at [facility]), hypertension, complicated diverticulitis (status post hemicolectomy), current smoker, anxiety, and
chronic pancreatitis who presented with palpitations and dizziness. She was found to have severely uncontrolled blood pressure.
She reported having stopped her home medications approximately 6 months prior to arrival because she thought they were making her lichen planus worse. Her blood pressure was much better controlled after starting on an oral antihypertensive regimen
of amlodipine and carvedilol, which she will need to continue after discharge. 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
controlled. She reported improvement in the blurry vision in right eye after acclimating to a more appropriate baseline blood pressure. MRI of her brain showed no acute changes but did show chronic appearing small lacunar infarcts in the
cerebellum which may be related to her uncontrolled blood pressure. She should follow-up with her talent director after discharge.
She had a mild troponin elevation likely due to her initially uncontrolled blood pressure. No evidence of acute cardiac ischemia noted either clinically or on EKG. She was evaluated by cardiology and obtained an echocardiogram which showed normal
LVEF with no regional wall motion abnormalities, with moderate concentric LVH, mild to moderate aortic stenosis, and moderate aortic regurgitation. She will need to follow-up with her mechanical engineering officer after discharge.
Her renal function was abnormal although remained stable with a creatinine around 1.3 throughout admission. Her baseline renal function is unclear but she is likely currently close to her baseline renal function. The patient prefers not to use ROMÁN
inhibitor's or ARB's because she does not want the inconvenience of having to monitor her renal function. She should have her renal function periodically monitored after discharge and to follow-up with a neck pinner.
She was advised to abstain from smoking and declined nicotine patch while inpatient. She was evaluated by PT/OT who recommended SNF versus home PT. Patient preferred to go home and arrange outpatient physical therapy.
At the time of hospital discharge she was hemodynamically stable. She will need to follow-up closely with her PCP, talent director, neck pinner, and mechanical engineering officer after discharge.
Gen-AAOx3, NAD
HEENT-NC, AT, anicteric, cloudy left cornea
Neck-supple
CV-reg, no M, +S1/S2
Lungs-clear B/L
Abd-soft, NT, ND
Musculoskeletal-no edema, no overt deformity
Skin-warm and dry
Neuro-grossly non-focal, no tremor
Psych-calm, cooperative
Discharge Plan
-
Patient Disposition: Home (Routine Discharge)
Discharge Diagnosis/Procedures: Hypertensive emergency
Condition: Fair
Diet: Low Residue
Activity: As tolerated
Other Services: PT and OT
Activity Restrictions/Additional Instructions:
Ms. Morales is a 78-year-old female with a medical history of spinal stenosis, lichen planus, ocular disease (corneal sclerosis?, follows at [facility]), hypertension, complicated diverticulitis (status post hemicolectomy), current smoker, anxiety, and
chronic pancreatitis who presented with palpitations and dizziness. She was found to have severely uncontrolled blood pressure.
She reported having stopped her home medications approximately 6 months prior to arrival because she thought they were making her lichen planus worse. Her blood pressure was much better controlled after starting on an oral antihypertensive regimen
of amlodipine and carvedilol, which she will need to continue after discharge. 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
controlled. She reported improvement in the blurry vision in right eye after acclimating to a more appropriate baseline blood pressure. MRI of her brain showed no acute changes but did show chronic appearing small lacunar infarcts in the
cerebellum which may be related to her uncontrolled blood pressure. She should follow-up with her talent director after discharge.
She had a mild troponin elevation likely due to her initially uncontrolled blood pressure. No evidence of acute cardiac ischemia noted either clinically or on EKG. She was evaluated by cardiology and obtained an echocardiogram which showed normal
LVEF with no regional wall motion abnormalities, with moderate concentric LVH, mild to moderate aortic stenosis, and moderate aortic regurgitation. She will need to follow-up with her mechanical engineering officer after discharge.
Her renal function was abnormal although remained stable with a creatinine around 1.3 throughout admission. Her baseline renal function is unclear but she is likely currently close to her baseline renal function. The patient prefers not to use ROMÁN
inhibitor's or ARB's because she does not want the inconvenience of having to monitor her renal function. She should have her renal function periodically monitored after discharge and to follow-up with a neck pinner.
She was advised to abstain from smoking and declined nicotine patch while inpatient. She was evaluated by PT/OT who recommended SNF versus home PT. Patient preferred to go home and arrange outpatient physical therapy.
At the time of hospital discharge she was hemodynamically stable. She will need to follow-up closely with her PCP, talent director, neck pinner, and mechanical engineering officer after discharge.
Referrals:
Suzanne Vasquez MD [Family Provider] -
Prescriptions:
New
atorvastatin 40 mg Tablet
40 mg PO QPM 30 Days Qty: 30 0RF
carvedilol 6.25 mg Tablet
6.25 mg PO BID 30 Days Qty: 60 0RF
aspirin 81 mg Tablet,Chewable
81 mg PO DAILY 30 Days Qty: 30 0RF
amlodipine 10 mg Tablet
10 mg PO DAILY 30 Days Qty: 30 0RF
Continued
alprazolam 0.5 mg Tablet
0.5 mg PO BID PRN (Reason: anxiety)
Patient Comments:
usually only takes it before bed
Discharge Orders:
Discharge Patient (As Directed); Ordered 07/04/24
Ordered By: Cedrick Harrell
Discharge Date and Time
Print Language: SLOVAK
[2024-07-04 15:38] VITALS: BP 153/47
== END 2024-07-04 16:34 | disposition home health service (06) | DRG 305 ==
LOC: 1 ACUTE 04:54
PROVIDERS: Emergency Medicine; Internal Medicine; Physician Assistant; ADMITTING PHYSICIAN Hospitalist; ATTENDING PHYSICIAN Internal Medicine; CONSULT PHYSICIAN Internal Medicine; EMERGENCY PHYSICIAN Emergency Medicine; FAMILY PHYSICIAN Student in an Organized Health Care Education/Training Program
DX: I16.1 Hypertensive emergency (principal); K86.1 Other chronic pancreatitis; I5A Non-ischemic myocardial injury (non-traumatic); I47.19 Other supraventricular tachycardia; N17.9 Acute kidney failure, unspecified; I10 Essential (primary) hypertension; L90.0 Lichen sclerosus et atrophicus; F32.A Depression, unspecified; F41.9 Anxiety disorder, unspecified; F17.210 Nicotine dependence, cigarettes, uncomplicated; G62.9 Polyneuropathy, unspecified; K57.30 Diverticulosis of large intestine without perforation or abscess without bleeding; M48.00 Spinal stenosis, site unspecified; T46.5X6A Underdosing of other antihypertensive drugs, initial encounter; Z86.73 Personal history of transient ischemic attack (TIA), and cerebral infarction without residual deficits; Z91.128 Patient's intentional underdosing of medication regimen for other reason; Z79.899 Other long term (current) drug therapy
CPT/HCPCS: 70450; 70551; 71046; 74176; 80048; 80053; 80061; 81003; 81015; 82248; 83036; 83690; 83880; 84443; 84484; 85025; 85027; 93005; 93306; 94760; 96374; 96375; 97110; 97116; 97162; 97166; 97530; 99285; 99406